=== PATIENT | male | born 1990 | race Caucasian/White ===

== ENCOUNTER 2016-12-26 16:28 | Inpatient (IN) | payer OTHER ==
--- NOTE | ~2016-12-26 | PA ---
Unit #: [id number] #: [id number] Patient: RAJAT ROJAS [id number] [facility] [address] [place] [address] [id number] I MR#: [id number] NAME: RAJAT ROJAS ROOM: [facility] Age: 26 Sex: M Admission Date: 12/26/2016 : 1990 Date of Assessment: Attending Physician: Jovanni Damon M.D. Admitting Physician: Jovanni Damon M.D. Primary Care Physician: Primary Care Physician No PSYCHIATRIC ASSESSMENT DATE OF ASSESSMENT 12/27/2016. INFORMANTS The patient considered reliable, OLOP considered reliable. CHIEF COMPLAINT Opioid dependence. HISTORY OF PRESENT ILLNESS Rajat Rojas is a 26-year-old man who presented to our [place] office with complaints of increasing heroin addiction including going into a "coma" from heroin use over the weekend. He wished to establish sobriety and denied suicidal ideation, intent, or plan. He was admitted for opioid detox. PAST PSYCHIATRIC HISTORY Multiple outpatient placements and inpatient rehab at [facility], [facility], [facility], and [facility]. He currently takes Celexa 20 mg daily for depression from his primary care physician. FAMILY PSYCHIATRIC HISTORY There is significant family history of depression and chemical dependence. SOCIAL HISTORY The patient denied any history of childhood abuse or neglect. He is a single heterosexual man, who is currently homeless and is unable to maintain employment. He is a high school graduate with associate's degree in the arts. PAST MEDICAL HISTORY No chronic medical problems. MEDICATIONS None currently. ALLERGIES Vancomycin. SUBSTANCE USE HISTORY As noted above. MENTAL STATUS EXAMINATION Unit #: [id number] #: [id number] Patient: RAJAT ROJAS presented as a mildly disheveled man who appeared his stated age. He was cooperative with the examination. His speech was spontaneous and easily understood. His musculoskeletal examination was calm. His mood was depressed with a congruent affect. He was alert and fully oriented. Memory and concentration were fair to good. Thought processes were goal directed with no active psychosis. He denied suicidal ideation, intent, or plan. Insight and judgment were fair. Fund of knowledge and abstraction were fair. ASSETS AND LIABILITIES The patient knows local resources and presents voluntarily for treatment. Liabilities include difficulty maintaining sobriety and endangered employment. ADMITTING DIAGNOSES AXIS I: Opioid dependence with withdrawal, uncomplicated, F11.23. AXIS II: No diagnosis. AXIS III: Polysubstance withdrawal. AXIS IV: AXIS V: PSYCHIATRIC PLAN Juwan was admitted and placed on the opioid detox protocol. Citalopram 20 mg daily will be initiated for treatment of depression. He will enroll in dual diagnosis groups and activities, and physical examination and laboratory studies will be ordered and reviewed. TREATMENT GOALS Resolution of intoxication, improvement in insight, and improvement in coping skills. DISCHARGE PLANNING Follow up with chemical dependency resources in [place]. ESTIMATED LENGTH OF STAY 5 days. Dictated by... Jovanni Damon M.D. CHIP/cuauhtemoc TD: 12/28/2016 00:46 JOB #: [id number] PSYCHIATRIC ASSESSMENT Page 1 of 1 X Jovanni Damon MD X PSYCHIATRIC ASSESSMENT
--- NOTE | ~2016-12-26 | HP ---
Unit #: [id number] #: [id number] Patient: RAJAT ROJAS [id number] [place] [address] [id number] I MR#: [id number] NAME: RAJAT ROJAS ROOM: [facility] Age: 26 Sex: M Admission Date: 12/26/2016 : 1990 Attending Physician: Jovanni Damon M.D. Admitting Physician: Jovanni Damon M.D. Primary Care Physician: Primary Care Physician No HISTORY AND PHYSICAL HISTORY OF PRESENT ILLNESS Rajat is a 26-year-old male admitted on 12/26/2016 to [facility] for detox from heroin. PAST MEDICAL HISTORY None. PAST SURGICAL HISTORY None. SOCIAL HISTORY Smokes 1-1/2 packs of cigarettes daily. Occasional alcohol use, and daily use of IV heroin. He also reports occasional use of meth and cocaine. He is currently single and homeless. FAMILY HISTORY Noncontributory. REVIEW OF SYSTEMS CONSTITUTIONAL: No fever or chills. HEENT: Denies any sore throat, ear pain or runny nose. CARDIOVASCULAR: Denies chest pain, irregular heart rhythm or palpitations. CHEST: Denies shortness of breath or cough. No hemoptysis. GASTROINTESTINAL: Denies nausea, vomiting, diarrhea or chronic constipation. ENDOCRINE: Denies history of increased thirst or urination. No recent significant weight loss or gain. GENITOURINARY: Denies dysuria, frequency, or hematuria. SKIN: Denies any rashes. HEMATOLOGIC: Denies history of increased bleeding or bruising. MUSCULOSKELETAL: Denies any hot, swollen joints. No generalized muscle pain. NEUROLOGIC: Denies problems with vision or speech. No frequent, severe headaches. No numbness, tingling or weakness in any extremities. Denies loss of bladder or bowel control. CURRENT MEDICATIONS Celexa. ALLERGIES Vancomycin. PHYSICAL EXAMINATION Unit #: [id number] #: [id number] Patient: RAJAT ROJAS GENERAL: Alert, oriented, no acute distress. VITAL SIGNS: Blood pressure 113/70, heart rate 63, respirations 18, and temperature 98.4. HEIGHT: 6 feet 0. WEIGHT: 170 pounds. SKIN: Warm, dry. No rashes or lesions, track castle, cuts, etc. HEENT: Normocephalic. TMs not viewed. Oronasal passages clear. Conjunctivae clear. PERRLA. EOM is intact. NECK: No lymphadenopathy or thyromegaly. HEART: Regular rate and rhythm. No murmur, gallop, or rub. LUNGS: Clear to auscultation bilaterally. ABDOMEN: Soft, nontender without palpable masses or hepatosplenomegaly. : Not assessed. EXTREMITIES: No evidence of cyanosis, clubbing, or edema. Moves all extremities independently without obvious deficit. NEUROLOGICAL: Grossly within normal limits. Cranial Nerves: II: Visual livingston are intact. III, IV AND : Extraocular movements are intact. Pupils are equal, round and reactive to light. V: Facial sensation is grossly normal. VII: Facial movements and expression are normal. VIII: Auditory acuity grossly intact. IX, X: Uvula is midline. Phonation is normal. XI: Patient shrugs shoulders and turns head normally. XII: Tongue protrudes in the midline. Sensory and Motor Function: Sensory and motor sensation is grossly normal. Motor: moves all extremities well. Coordination: Gait is normal. Deep Tendon Reflexes: Intact. IMPRESSION Psychiatric admission. RECOMMENDATIONS PSYCHIATRIC: Per psychiatrist. MEDICAL: No contraindication to participate in this facility's activities. MEDICAL PROGNOSIS Good. MEDICAL CONDITION Stable. Dictated by... Osei Ornelas/wild TD: 12/28/2016 09:04 JOB #: [id number] Unit #: [id number] #: [id number] Patient: RAJAT ROJAS HISTORY AND PHYSICAL Page 1 of 1 X VERNON LEO APRN HISTORY AND PHYSICAL
--- NOTE | ~2016-12-26 | DS ---
Unit #: [id number] #: [id number] Patient: STAR ROJAS [id number] [facility] [address] [place] [address] [id number] I MR#: [id number] NAME: STAR ROJAS ROOM: [facility] Age: 26 Sex: M Admission Date: 12/26/2016 : 1990 Discharge Date: 12/30/2016 Attending Physician: Jovanni Damon M.D. Primary Care Physician: Primary Care Physician No DISCHARGE SUMMARY REASON FOR ADMISSION Star is a 26-year-old man who came into the [place] office reporting increasing heroin use and a recent overdose. He denied suicidal ideation, intent or plan and was admitted for stabilization. DIAGNOSTIC STUDIES LABORATORY DATA: Please see hospital chart. HOSPITAL COURSE Patient was admitted and placed on the opiate detox protocol. His physical examination was conducted and was felt to be unremarkable. He will start on citalopram 20 mg daily for treatment of what appeared to be a secondary depression and tolerated this with no significant adverse side effects. He attended dual diagnosis groups and activities and worked with his social work therapist on finding a [employer] in the [place], [place] area as well as reconnecting with his sponsor. On the date of discharge, he was able to contract for safety. DISCHARGE DIAGNOSES AXIS I: Opioid dependence withdrawal, uncomplicated. Opiate induced mood disorder. AXIS II: No diagnosis. AXIS III: None. INSTRUCTIONS TO PATIENT Follow up with [facility] in [place], [place] and with [facility] as well as with his sponsor. DISCHARGE MEDICATIONS Citalopram 20 mg daily for depression. CONDITION ON DISCHARGE Improved. PROGNOSIS Fair to good. DIET AND ACTIVITY Per primary care doctor. Dictated by... Jovanni Damon M.D. Unit #: [id number] #: [id number] Patient: STAR ROJAS [facility]/dzh TD: 02/27/2017 17:53 JOB #: [id number] DISCHARGE SUMMARY Page 1 of 1 X Jovanni Damon MD X DISCHARGE SUMMARY
[2016-12-27 12:35] LABS: BASOPHIL% 0.7 % (0-2.5); EOSINOPHIL# 0.5 X10e3 (0-0.7); EOSINOPHIL% 7.3 % (0.0-7.0); HEMATOCRIT 45.4 % (38.0-50.0); HEMOGLOBIN 14.9 gm/dL (13.0-16.0); LYMPHOCYTE# 2.3 X10e3 (1.0-3.5); LYMPHOCYTE% 31.9 % (17.0-45.0); MEAN CELL VOLUME 87.2 FL (83-96); MEAN CORPUSCULAR HEMOGLOBIN 28.7 PG (28-34); MEAN CORPUSCULAR HGB CONC 32.9 g/dL (30-36); MEAN PLATELET VOLUME 7.7 FL (6.5-11.5); MONOCYTE# 0.7 X10e3 (0-1.0); MONOCYTE% 9.3 % (3.0-12.0); NEUTROPHIL# 3.6 X10e3 (1.5-7.1); NEUTROPHIL% 50.8 % (40-75); PLATELET COUNT 305 X10e3 (140-420); RED CELL DISTRIBUTION WIDTH 13.4 % (11.0-15.5); WHITE BLOOD COUNT 7.1 X10e3 (4.0-10.5)
[2016-12-27 12:40] LABS: DIFF IND NO
[2016-12-27 13:00] LABS: ALBUMIN SERUM 4.1 g/dL (3.5-5.0); BILIRUBIN,TOTAL 0.4 mg/dL (0.2-2.0); BUN/CREATININE RATIO 12.22; CALCIUM SERUM 9.9 mg/dL (8.4-10.2); CREATININE SERUM 0.9 mg/dL (0.6-1.4); GLOM FILT RATE Estimated 115.8 mL/min (>60); POTASSIUM 4.5 mmol/L (3.5-5.1); PROTEIN TOTAL SERUM 6.7 g/dL (6.0-8.3)
[2017-01-01 01:59] LABS: HA AB IGM (HEPPAN) Nonreactive (()); HB CORE AB IGM (HEPPAN) Nonreactive (Nonreactive); HB S AG (HEPPAN) Nonreactive (Nonreactive); HEP C AB (HEPPAN) Nonreactive (Nonreactive); HEP C AB SIGNAL TO CUTOFF 0.01 ratio (<1.00)
== END 2016-12-30 16:00 | disposition home or self-care (01) | DRG 897 ==
LOC: P1E 23:22
PROVIDERS: Psychiatry & Neurology Psychiatry
PROC: HZ2ZZZZ Detoxification Services for Substance Abuse Treatment (ICD-10-PCS; principal; 2016-12-26)
DX: F11.23 Opioid dependence with withdrawal (principal); F17.210 Nicotine dependence, cigarettes, uncomplicated; Z59.0 Homelessness
CPT/HCPCS: 80053; 80074; 85025; 86592; 87806